=== PATIENT | female | born 1960 | race Caucasian/White ===

== ENCOUNTER 2018-04-14 18:53 | Emergency (ER) | payer OTHER, MEDICARE ==
[~2018-04-14 18:53] MED LIST: DIAZEPAM10 MG PO; HYDROXYCHLOROQ200 M1 PO; MYCOSTATIN SUS.60 ML PO; NEXIUM 40MG40 MG PO; OXYCODONE HYDRO15 MG PO; PREDNISONE 10MG10 M1 PO; PREDNISONE10 MG PO; PREDNISONE5 MG PO; PROAIR HFA0.09 MG/Ac INH; TOPIRAMATE50 MG PO; TRAMADOL HCL50 MG PO; TYLENOL XSTR500 MG PO; VITAMIN B121000 MC2 SL; VITAMIN D31000 IU PO; VOLTAREN GEL1% TOP
[2018-04-14 19:04] VITALS: BP 172/73
--- NOTE | 2018-04-14 19:08 | ED HAND/WRIST INJURY COMPLAINT ---
History of Present Illness General Chief Complaint: Hand or Wrist Injury Stated Complaint: ROSS Colón HAND IN DOOR Source: patient Exam Limitations: no limitations Vital Signs & Intake/Output Vital Signs & Intake/Output Vital Signs Date Time Temp Pulse Resp B/P B/P Pulse O2 O2 Flow FiO2 Mean Ox Delivery Rate 04/14 1904 98.4 97 16 172/73 95 Room Air Allergies Coded Allergies: MDX - Codeine (Codeine) (Intermediate, GI UPSET 06/16/14) Reconcile Medications Acetaminophen (Tylenol Xstr) 500 MG TAB 1,000 MG PO DAILY PAIN (Reported) Albuterol Sulfate (Proair Hfa) 0.09 MG/Actuation KANDACE 2 PUFF INH BID ASTHMA ( Reported) Cholecalciferol (Vitamin D3) 1,000 IU TAB 4 TAB PO DAILY VIT D DEFFICIENCY ( Reported) Cyanocobalamin (Vitamin B12) (Unknown Strength) TAB (Unknown Dose) SL DAILY VIT B DEFFICIENCY (Reported) Diazepam 10 MG TABLET 0.5 TAB PO PRN SLEEP (Reported) Diclofenac Sodium (Voltaren) 1 % GEL..GRAM. 1 GM TOP 4 TIMES/DAY PRN PAIN ( Reported) apply to affected area(s) Esomeprazole (Nexium) 40 MG CAPSULE.DR 1 CAP PO DAILY ESOPHAGITIS (Reported) Hydroxychloroquine Sulfate 200 MG TABLET 1 TAB PO BID SEE COMMENTS (Reported) Nystatin (Mycostatin Marie. 100,000U/Ml 60ML) 60 ML MARIE 5 ML PO 4 TIMES/DAY ORAL THRUSH Oxycodone Hydrochloride 15 MG TAB 1-5 TAB PO DAILY PAIN (Reported) Prednisone 5 MG TAB 1 TAB PO DAILY SEE COMMENTS (Reported) Prednisone 10 MG TAB 0 PO DAILY INFLAMMATION DAY 1: 6 TABS PO QD DAY 2: 6 TABS PO QD DAY 3: 5 TABS PO QD DAY 4: 4 TABS PO QD DAY 5: 3 TABS PO QD DAY 6: 2 TABS PO QD DAY 7: 1 TAB PO QD Prednisone 10 MG TABLET 0 TAB PO AD INFLAMMATION 3 TABS TWICE A DAY X 2 DAYS 2 TABS TWICE A DAY X 2 DAYS 1 TABS TWICE A DAY X 2 DAYS 1/2 TAB TWICE A DAY X 1 DAYS Topiramate 50 MG TABLET 2 TAB PO QPM MIGRAINE PROPHYLAXIS (Reported) TRAMADOL HCL (Tramadol HCl) 50 MG TABLET 1-4 TAB PO DAILY PAIN (Reported) Triage Note: PT TO ED S/P SLAMMING LEFT HAND IN A DOOR ONE HOUR AGO.TAKES DAILY PLAVIX. INCREASING SWELLING, BRUISING TO LEFT THUMB AREA. NO OBVIOUS DEFORMITY NOTED. Triage Nurses Notes Reviewed? yes Occurred: just prior to arrival Duration: hour(s):, constant Timing: single episode today Injury Environment: neighbor's Severity: moderate, severe HPI: 58-year-old female comes into the emergency room for further evaluation of contusion to left hand. Patient's hand was closed in the car door. Some associated swelling and pain. Brought in for further evaluation. Sharp throbbing. Continuous. (Abelardo Adams) Past History Travel History Traveled to [facility] past 21 day No Medical History Any Pertinent Medical History? see below for history Neurological: migraine, CONNECTIVE TISSUE DISEASE EENT: cataracts Cardiovascular: NONE Respiratory: asthma Gastrointestinal: NONE Hepatic: NONE Renal: NONE Musculoskeletal: NONE Psychiatric: NONE Endocrine: NONE Blood Disorders: NONE Cancer(s): NONE CERTIFIED PERSONAL FINANCE COUNSELOR/Reproductive: NONE Surgical History Surgical History: non-contributory Psychosocial History What is your primary language [place] Tobacco Use: Current Daily Use Daily Tobacco Use Amount/Type: => 5 Cigarettes daily Family History Hx Contributory? No (Abelardo Adams) Review of Systems Review of Systems Constitutional: Reports: no symptoms. EENTM: Reports: no symptoms. Respiratory: Reports: no symptoms. Cardiovascular: Reports: no symptoms. GI: Reports: no symptoms. Genitourinary: Reports: no symptoms. Musculoskeletal: Reports: see HPI. Skin: Reports: no symptoms. Neurological/Psychological: Reports: no symptoms. Hematologic/Endocrine: Reports: see HPI. Immunologic/Allergic: Reports: no symptoms. All Other Systems: Reviewed and Negative (Abelardo Adams) Physical Exam Physical Exam General Appearance: well developed/nourished, mild distress Head: atraumatic Eyes: Bilateral: normal appearance. Ears, Nose, Throat: normal ENT inspection, hearing grossly normal Neck: normal inspection Cardiovascular/Respiratory: no respiratory distress Back: normal inspection Hand Left: ecchymosis, swelling, tender Hand Right: normal inspection Neurologic/Tendon: normal sensation, normal motor functions, normal tendon functions, responds to pain, no evidence tendon injury, no pulse deficit Skin: intact, normal color, warm/dry (Abelardo Adams) Progress Differential Diagnosis: contusion, fracture, sprain Plan of Care: Orders Procedure Date/time Status Durable Medical Equipment 04/14 2022 Active Diagnostic Imaging: Viewed by Me: Radiology Read. Discussed w/RAD: Radiology Read. Radiology Impression: PATIENT: KELBY MONTANO PRESENT AGE: 58 PATIENT ACCOUNT NO: [id number] : 56 LOCATION: [facility] ([place]) ORDERING PHYSICIAN: Abelardo PALACIO SERVICE DATE: 04/14/18 EXAM TYPE: RAD - XRY-HAND, LEFT EXAMINATION: XR HAND, LEFT CLINICAL INFORMATION: Slammed left hand in door with pain COMPARISON: None TECHNIQUE: PA, lateral, and oblique views of the left hand. FINDINGS: There is some generalized osteopenia and minimal degenerative changes present. The bones and soft tissues are otherwise normal. No fracture. Alignment is anatomic. Joint spaces are maintained. IMPRESSION: No acute fractures are seen. DICTATED BY: Иван Calderon MD DATE/ TIME DICTATED:04/14/181929 DOUGH CUTTER:NATASHA DATE/TIME TRANSCRIBED: 04/14/181929 CONFIDENTIAL, DO NOT COPY WITHOUT APPROPRIATE AUTHORIZATION. < Electronically signed in Other Vendor System> SIGNED BY: Иван Calderon MD 04/14/181934 (Abelardo Adams) Departure Departure Disposition: HOME OR SELF CARE Condition: Stable Clinical Impression Primary Impression: Contusion of left hand Referrals: Madeline ROBERTS,Latonya Rodriguez (PCP/Family) Jatin Espinoza MD Additional Instructions: Ice. Rest. Tylenol for pain. Return if any concerns worsening symptoms. Please go over all results of today's visit with your primary care doctor. Contact your primary care doctor to let them know you were here in the emergency room. There may be nonspecific findings which may not be related to your visit today here in the emergency room but may require further evaluation and chronic monitoring by your primary care doctor. If you had a laceration today the chance of foreign body always remains. You should follow-up with your primary care doctor for recheck in 3-5 days for a wound check. If you had an x-ray done there is a chance that a fracture could have been missed on initial read and you should follow-up with your primary care doctor for repeat x-rays if symptoms persist. If your blood pressure was elevated here in the emergency room please have rechecked by [facility] primary care doctor within the next 48. If you were prescribed a narcotic here in the emergency room or any type of controlled substances you're not allowed to drive while taking this medication or operate any type of heavy machinery. Narcotics can make you feel lightheaded dizziness nausea and can cause constipation. You may need to picking table worker a stool softener. Thank you for choosing [facility] emergency room. Please return to the emergency room immediately if you have any other concerns worsening of symptoms. Departure Forms: Customer Survey General Discharge Information Comments 04/14/2018 8:57:59 PM Patient clinically looks well. Follow-up with PCP. Return if any other concerns worsening symptoms. (Abelardo Adams) PA/SECURITY SME Co-Sign Statement Statement: ED Attending supervision documentation- [] I saw and evaluated the patient. I have also reviewed all the pertinent lab results and diagnostic results. I agree with the findings and the plan of care as documented in the PA's/SECURITY SME's documentation. [x] I have reviewed the ED Record and agree with the PA's/SECURITY SME's documentation. [] Additions or exceptions (if any) to the PAs/SECURITY SME's note and plan are summarized below: [] (Jayden ROBERTS,Trell N[place]) Procedures Splinting Location: left hand Pre-Made Type: velcro Splint: thumb spica Splint Applied By: splint applied by me Pre-Proc Neuro Vasc Exam: normal Post-Proc Neuro Vasc Exam: normal (Abelardo Adams)
--- NOTE | 2018-04-14 19:35 | RADIOLOGY REPORT ---
EXAMINATION: XR HAND, LEFT CLINICAL INFORMATION: Slammed left hand in door with pain COMPARISON: None TECHNIQUE: PA, lateral, and oblique views of the left hand. FINDINGS: There is some generalized osteopenia and minimal degenerative changes present. The bones and soft tissues are otherwise normal. No fracture. Alignment is anatomic. Joint spaces are maintained. IMPRESSION: No acute fractures are seen.
== END 2018-04-14 20:30 ==
LOC: ERH 18:53
DX: S60.222A Contusion of left hand, initial encounter (principal); W23.0XXA Caught, crushed, jammed, or pinched between moving objects, initial encounter; Y92.9 Unspecified place or not applicable; Y93.9 Activity, unspecified; F17.210 Nicotine dependence, cigarettes, uncomplicated
CPT/HCPCS: 73130-LT